=== PATIENT | female | born 1930 | race Caucasian/White ===

== ENCOUNTER 2017-11-08 22:40 | Inpatient (IN) ==
[2017-11-08 23:42] LABS: Basophils % 0.5 % (0.0-0.8); Eosinophils # 0.1 10*3/uL (0.0-0.87); Eosinophils % 1.2 % (0.00-10.9); Hematocrit 42.2 VOL% (35.7-47.0); Hemoglobin 13.8 GM/DL (12.0-16.0); Immature Granulocytes % 0.7 %; Immature Granulocytes Absolute 0.05 #; Lymphocytes # 0.3 10*3/uL (1.4-4.0); Lymphocytes % 3.5 % (21.3-54.2); Mean Corpuscular HGB Conc 32.7 GM/DL (32-36); Mean Corpuscular Hemoglobin 30 PG (27-34); Mean Corpuscular Volume 92.3 FL (87-102); Mean Platelet Volume 9.7 FL (9.6-12.0); Monocytes # 0.1 10*3/uL (0.11-0.8); Monocytes % 1.9 % (1.7-12.7); Neutrophils # 6.9 10*3/uL (1.4-7.4); Neutrophils % 92.2 % (38.7-73.9); Platelet Count 161 T/CUMM (130-400); Red Blood Count 4.57 MC/CUMM (3.8-5.5); Red Cell Distribution Width 13.3 % (9.3-17.3); White Blood Count 7.5 T/CUMM (4-12)
[2017-11-08 23:50] LABS: INR 1.1; PT Patient Result 11.1 SECS; Partial Thromboplastin Time 27.9 SECS (0-40)
[2017-11-09 00:02] LABS: Band Neutrophils 30 % (0-10); Eosinophils 2 % (0-10); Lymphocytes 5 % (20-55); Segmented Neutrophils 60 % (50-85); Total Cells Counted 100
[2017-11-09 00:03] LABS: Alanine Aminotransferase 17 U/L (13-56); Albumin 2.5 G/DL (3.4-5.0); Alkaline Phosphatase 184 U/L (45-117); Aspartate Amino Transferase 29 U/L (0-37); Bilirubin,Total < 0.39 MG/DL (0.2-1.0); Blood Urea Nitrogen 41 MG/DL (7-18); Calcium 8.7 MG/DL (8.5-10.1); Glucose 79 MG/DL (74-106); Osmolality,Calculated 278.1 MOS/KG (273-304); Potassium 3.4 MMOL/L (3.5-5.1); Sodium 135 MMOL/L (136-145); Total Protein 5.5 G/DL (6.4-8.3); Troponin I Only < 0.015 NG/ML (0.00-0.045)
[2017-11-09] MEDS ORDERED: SODIUM CHLORIDE 0.9% 1,000 ML IV STA ×2 (01:38→04:19)
[2017-11-09 01:59] LABS: ABG Base Excess -2.7 MMOL/L (-2.5-2.5); ABG Oxygen Saturation 94.9 % (95-100); ABG PCO2 43.4 MM HG (35-48); ABG PH 7.342 (7.35-7.45); ABG PO2 75.5 MM HG (80-95); ABG TCO2 24.3 MMOL/L (23-27)
[2017-11-09 03:13] LABS: Barbiturates Screen,Urine Negative (Negative); Benzodiazepines Screen,Urine Negative (Negative); Cannabinoid Screen,Urine Negative (Negative); Opiate Screen,Urine Positive (Negative); Phencyclidine Screen,Urine Negative (Negative)
[2017-11-09 03:24] LABS: Amorphous Crystals,Urine Few /HPF (Few); Apearance,Urine CLOUDY (Clear); Bacteria,Urine Many /HPF (Few); Bilirubin,Urine Negative (Negative); Blood, Urine Moderate mg/dL (Negative); Glucose,Urine (UA) Negative (Negative); Ketones,Urine Negative (Negative); Nitrite,Urine Negative (Negative); Protein,Urine 100 MG/DL; RBC,Urine 6 /HPF (0-4); Urine Color Yellow (Yellow); Urine Specific Gravity 1.012 (1.001-1.035); Urine Urobilinogen < 2.0 EU/DL (0.2-1.0); WBC,Urine 80 /HPF (0-6)
[2017-11-09] MEDS ORDERED: METHOCARBAMOL 500 MG TABLET PO STA (04:21)
[2017-11-09] MEDS ORDERED: cefTRIAXone 1,000 MG in SODIUM CHLORIDE 0.9% 100 ML IV STA (04:22)
[2017-11-09] MEDS ORDERED: cefTRIAXone 1,000 MG VIAL ONE (04:40)
[2017-11-09] MEDS ORDERED: MORPHINE 4 MG/1 ML VIAL IV PRN (05:44)
[2017-11-09] MEDS ORDERED: POTASSIUM CHLORIDE RIDER 10 MEQ in PREMIX 1 EACH IV PRN (05:50)
[2017-11-09] MEDS ORDERED: PANTOPRAZOLE 40 MG VIAL IV SCH (06:00)
[2017-11-09] MEDS ORDERED: CIPROFLOXACIN INJ 400 MG in PREMIX 1 EACH IV SCH ×2 (06:00→10:00)
[2017-11-09] MEDS ORDERED: NALOXONE 0.4 MG/ML VIAL IV ONE (06:02)
[2017-11-09] MEDS ORDERED: DEXTROSE 50% 25 GM/50 ML VIAL IV ONE ×3 (07:02→07:19)
[2017-11-09] MEDS: SODIUM CHLORIDE 0.9% 1,000 ML IV SCH ×2 (07:17→17:24)
[2017-11-09 08:31] LABS: Apearance,Urine CLOUDY (Clear); Bacteria,Urine Many /HPF (Few); Bilirubin,Urine Negative (Negative); Blood, Urine Moderate mg/dL (Negative); Glucose,Urine (UA) Negative (Negative); Ketones,Urine Negative (Negative); Nitrite,Urine Negative (Negative); Protein,Urine 100 MG/DL; RBC,Urine 9 /HPF (0-4); Urine Color Amber (Yellow); Urine Specific Gravity 1.011 (1.001-1.035); Urine Urobilinogen < 2.0 EU/DL (0.2-1.0); WBC,Urine 289 /HPF (0-6)
[2017-11-09 08:55] LABS: Lactic Acid 5.3 MMOL/L (0.4-2.0)
[2017-11-09] MEDS ORDERED: SODIUM CHLORIDE 0.9% 1,000 ML IV SCH (09:00)
[2017-11-09 09:18] LABS: Ammonia < 10 UMOL/L (11-32)
[2017-11-09] MEDS: ENOXAPARIN 30 MG/0.3 ML SYRINGE SUBCUT SCH (10:15)
[2017-11-09] MEDS: PANTOPRAZOLE 40 MG TABLET PO SCH (10:15)
[2017-11-09] MEDS ORDERED: DEXTROSE 50% 25 GM/50 ML VIAL IV PRN (12:03)
[2017-11-09 12:06] LABS: ABG Base Excess -6.6 MMOL/L (-2.5-2.5); ABG HCO3 18.2 MMOL/L (20-26); ABG Oxygen Saturation 95.8 % (95-100); ABG PCO2 33.6 MM HG (35-48); ABG PH 7.351 (7.35-7.45); ABG TCO2 19.2 MMOL/L (23-27)
[2017-11-09] MEDS ORDERED: SODIUM CHLORIDE 0.9% 1,000 ML IV ONE (12:15)
[2017-11-09] MEDS ORDERED: PHENYLEPHRINE DRIP 40 MG/250 ML PREMIX IV ONE (12:27)
[2017-11-09] MEDS: PHENYLEPHRINE DRIP 40 MG/250 ML PREMIX IV PRN ×3 (12:51→18:51)
[2017-11-09] MEDS ORDERED: LEVOFLOXACIN INJ 500 MG in PREMIX 1 EACH IV ONE (16:17)
[2017-11-09] MEDS: DEXTROSE 5% NACL 0.9% 1,000 ML IV SCH ×2 (17:23→17:25)
[2017-11-09] MEDS: cefTRIAXone 1,000 MG in SYRINGE 1 EACH IV SCH (18:36)
[2017-11-09] MEDS: MORPHINE 4 MG/1 ML VIAL IV PRN ×2 (19:22→23:06)
[2017-11-10] MEDS: DEXTROSE 5% NACL 0.9% 1,000 ML IV SCH ×2 (01:18→07:06)
[2017-11-10] MEDS: SODIUM CHLORIDE 0.9% 1,000 ML IV SCH ×2 (01:18→07:06)
[2017-11-10] MEDS: MORPHINE 4 MG/1 ML VIAL IV PRN ×7 (03:23→23:23)
[2017-11-10] MEDS: cefTRIAXone 1,000 MG in SYRINGE 1 EACH IV SCH (03:38)
[2017-11-10 04:05] LABS: Allen Test Positive
[2017-11-10 04:07] LABS: ABG Base Excess -10.3 MMOL/L (-2.5-2.5); ABG HCO3 14.2 MMOL/L (20-26); ABG Oxygen Saturation 95.4 % (95-100); ABG PCO2 26.9 MM HG (35-48); ABG PH 7.339 (7.35-7.45); ABG PO2 75.2 MM HG (80-95)
[2017-11-10] MEDS: PANTOPRAZOLE 40 MG TABLET PO SCH (08:16)
[2017-11-10] MEDS: ENOXAPARIN 30 MG/0.3 ML SYRINGE SUBCUT SCH (08:16)
[2017-11-10] MEDS ORDERED: DEXTROSE 50% 25 GM/50 ML VIAL IV PRN (10:44)
[2017-11-10] MEDS ORDERED: PHENYLEPHRINE DRIP 40 MG/250 ML PREMIX IV PRN (10:45)
[2017-11-10] MEDS ORDERED: POTASSIUM CHLORIDE RIDER 10 MEQ in PREMIX 1 EACH IV PRN (10:46)
[2017-11-10] MEDS ORDERED: DEXTROSE 5% NACL 0.9% 1,000 ML IV SCH (11:00)
[2017-11-10] MEDS ORDERED: ENOXAPARIN 30 MG/0.3 ML SYRINGE SUBCUT SCH (11:00)
[2017-11-10] MEDS ORDERED: PANTOPRAZOLE 40 MG VIAL IV SCH (11:00)
[2017-11-10] MEDS ORDERED: cefTRIAXone 1,000 MG in SYRINGE 1 EACH IV SCH (11:00)
[2017-11-11] MEDS: MORPHINE 4 MG/1 ML VIAL IV PRN ×8 (02:29→23:29)
[2017-11-12] MEDS: MORPHINE 4 MG/1 ML VIAL IV PRN ×2 (02:18→03:22)
[2017-11-12] MEDS: HYDROmorphone 2 MG/1 ML VIAL IV PRN ×6 (05:14→21:58)
[2017-11-13] MEDS: HYDROmorphone 2 MG/1 ML VIAL IV PRN ×4 (00:21→08:17)
[2017-11-13] MEDS: LORazepam 2 MG/1 ML VIAL IV PRN ×3 (09:08→21:32)
[2017-11-13] MEDS: fentaNYL 75 MCG/HR PATCH TRANSDERM SCH (09:14)
[2017-11-14] MEDS: LORazepam 2 MG/1 ML VIAL IV PRN ×7 (03:27→20:07)
[2017-11-14] MEDS: HYDROmorphone 2 MG/1 ML VIAL IV PRN ×2 (14:32→17:11)
[2017-11-15] MEDS: HYDROmorphone 2 MG/1 ML VIAL IV PRN ×9 (03:55→23:00)
[2017-11-15] MEDS: LORazepam 2 MG/1 ML VIAL IV PRN ×9 (03:55→23:01)
[2017-11-15] MEDS: MORPHINE 4 MG/1 ML VIAL IV PRN ×2 (21:53→23:58)
[2017-11-16] MEDS: HYDROmorphone 2 MG/1 ML VIAL IV PRN ×3 (01:01→05:55)
[2017-11-16] MEDS: LORazepam 2 MG/1 ML VIAL IV PRN ×6 (01:02→11:20)
[2017-11-16] MEDS: MORPHINE 4 MG/1 ML VIAL IV PRN ×5 (02:19→13:08)
[2017-11-16] MEDS: fentaNYL 75 MCG/HR PATCH TRANSDERM SCH (08:53)
[2017-11-16 09:43] VITALS: BP 58/28
== END 2017-11-16 11:53 | disposition expired | DRG 871 ==
LOC: N.ED 22:40 → SUATTDRO 11-09 05:14 → N.EDINP 11-09 05:14 → N.ICU 11-09 06:01 → N.5E 11-10 13:57
PROVIDERS: ATTEND Hospitalist